=== PATIENT | female | born 1995 | race Two or more races ===

== ENCOUNTER 2024-12-24 06:28 | Outpatient (REF) | payer OTHER, SELFPAY ==
--- NOTE | ~2024-12-24 | US_ITS ---
EXAMINATION: US PELVIS TRANSABDOMINAL AND TRANSVAGINAL HISTORY: PAINFUL INTERCOURSE, LT SIDED FULLNESS, H/O OV CYSTS COMPARISON: There are no prior studies for comparison. TECHNIQUE: Transabdominal and endovaginal real-time 2D diaz-scale ultrasound was performed. Color Doppler was also performed. FINDINGS: Uterus: The uterus is normal in size, measuring 6.8 x 4.0 x 4.9 cm. Myometrium has a normal echotexture. No fibroids are identified. Endometrium: The endometrial stripe measures 15 mm in thickness. Right ovary: The right ovary measures 3.1 x 1.6 x 3.0 cm. The right ovary is normal in size and echotexture. There is a dominant follicle measuring 2.2 x 1.6 x 1.3 cm. Left ovary: The left ovary measures 4.0 x 2.4 x 2.1 cm. The left ovary is normal in size and echotexture. Color Doppler analysis of the bilateral ovarian arteries and veins is normal. Pelvic fluid: none. US/US pelvic and transvaginal IMPRESSION: Unremarkable pelvic ultrasound. Electronically signed by: Deacon Victor MD 12/24/2024 09:01 AM EDT
== END 2024-12-24 06:29 | disposition home or self-care (01) ==
LOC: HO.UMASIMG 06:28
PROVIDERS: Visit Provider Nurse Practitioner Women's Health
DX: R10.2 Pelvic and perineal pain (principal); N94.19 Other specified dyspareunia
CPT/HCPCS: 76830; 76856

== ENCOUNTER → 2024-12-24 08:20 | Outpatient (BNV) | payer OTHER, SELFPAY | PROVIDERS: Visit Provider Radiology Diagnostic Radiology | DX: N94.10 Unspecified dyspareunia (principal) | CPT/HCPCS: 76830; 76856 ==